=== PATIENT | female | born 1990 | race Caucasian/White ===

== ENCOUNTER 2017-09-03 19:35 | Emergency (ER) | payer BC, MEDICAID ==
[~2017-09-03] VITALS: Ht 160 cm; Wt 74.7 kg
[~2017-09-03 19:35] MED LIST: CIPR500T87; DOXY100C15 PO; HYDR1TAB12 PO; NONE PER PT
[2017-09-03] MEDS ORDERED: ONDANSETRON 2MG/ML, 2ML IVPush ONE (20:00)
[2017-09-03] MEDS ORDERED: SODIUM CHLORIDE FLUSH 10ML SYR IVF ONE (20:00)
[2017-09-03] MEDS ORDERED: SODIUM CHLORIDE 0.9% 1,000ML IVBOLUS ONE (20:00)
[2017-09-03 20:23] LABS: HEMATOCRIT 48.8 % (34.6-47.8); HEMOGLOBIN 16.5 g/dL (11.7-16.4); WHITE BLOOD COUNT 9.8 x10^3/uL (3.4-10)
[2017-09-03 20:30] LABS: ASPARTATE AMINO TRANSFERASE 10 U/L (15-37); BLOOD UREA NITROGEN 14 mg/dL (7-18)
[2017-09-03] MEDS ORDERED: KETOROLAC 30 MG/1 ML ONE (20:57)
[2017-09-03] MEDS ORDERED: KETOROLAC 60 MG/2 ML IM ONE (21:00)
[2017-09-03 21:33] VITALS: BP 112/74
== END 2017-09-03 21:35 | disposition home or self-care (01) ==
LOC: ED 19:58
DX: M54.5 Low back pain (principal)
CPT/HCPCS: 36415; 74176; 80053; 81001; 83605; 83690; 84145; 84703; 85025; 87040; 87086; 96372; 99285; J1885

== ENCOUNTER 2017-12-05 22:10 | Emergency (ER) | payer MEDICAID ==
[~2017-12-05] VITALS: Ht 160 cm; Wt 73.0 kg
[2017-12-05 22:20] VITALS: BP 141/78
[2017-12-05] MEDS ORDERED: SODIUM CHLORIDE 0.9% 1,000ML IVBOLUS ONE (22:30)
[2017-12-05] MEDS ORDERED: LORazepam 2 MG/ML, 1ML IVPush ONE (22:30)
[2017-12-05] MEDS ORDERED: LORazepam 2 MG/ML, 1ML ONE (22:54)
[2017-12-05 22:56] LABS: ALBUMIN 4.4 g/dL (3.4-5.0); ANION GAP 12 mmol/L (5-15); CALCIUM 8.9 mg/dL (8.5-10.1); CHLORIDE 110 mmol/L (98-107)
[2017-12-05 23:03] LABS: ACETAMINOPHEN < 2 mcg/mL (10-30); SALICYLATE LEVEL < 1.7 mg/dL (2.8-20.0)
[2017-12-05] MEDS ORDERED: ZIPRASIDONE 20 MG INJ IM ONE (23:44)
[2017-12-06] MEDS ORDERED: ZIPRASIDONE 20 MG INJ IM ONE
== END 2017-12-06 00:43 | disposition home or self-care (01) ==
LOC: ED 23:59
DX: F15.150 Other stimulant abuse with stimulant-induced psychotic disorder with delusions (principal); F41.9 Anxiety disorder, unspecified; Z88.1 Allergy status to other antibiotic agents; Z88.2 Allergy status to sulfonamides
CPT/HCPCS: 36415; 80048; 80307; 80329; 82040; 84703; 96361; 96374; 99285; J2060; J7030; G0480

== ENCOUNTER 2017-12-06 03:33 | Emergency (ER) | payer MEDICAID ==
[~2017-12-06] VITALS: Ht 162.6 cm; Wt 70.0 kg
[2017-12-06 03:49] VITALS: BP 142/92
== END 2017-12-06 09:20 | disposition home or self-care (01) ==
LOC: ED 04:18
DX: F10.129 Alcohol abuse with intoxication, unspecified (principal); F15.10 Other stimulant abuse, uncomplicated; Z88.0 Allergy status to penicillin
CPT/HCPCS: 99283

== ENCOUNTER 2018-06-01 14:55 | Emergency (ER) | payer MEDICAID ==
[~2018-06-01] VITALS: Ht 162.6 cm; Wt 65.0 kg
[2018-06-01 14:58] VITALS: BP 130/84
[2018-06-01] MEDS ORDERED: LIDOCAINE-MPF 2%, 2ML ONE ×2 (15:27)
[2018-06-01] MEDS ORDERED: CLINDAMYCIN 300 MG CAPSULE PO ONE (15:30)
[2018-06-01] MEDS ORDERED: DIPH,PERTUSS(ACELL),TET VAC/PF 0.5 ML IM-VACC ONE ×2 (15:30→15:32)
[2018-06-01] MEDS ORDERED: LIDOCAINE 2%, 20ML SQ ONE (15:30)
[2018-06-01] MEDS ORDERED: OXYcodone/APAP 5/325MG TABLET PO ONE (15:30)
[2018-06-01] MEDS ORDERED: OXYcodone/APAP 5/325MG TABLET ONE (15:32)
[2018-06-01] MEDS ORDERED: CLINDAMYCIN 300 MG CAPSULE ONE (15:34)
[2018-06-01] MEDS ORDERED: BACITRACIN ZINC OINT 500U/GM, 0.9 GM ONE (15:55)
== END 2018-06-01 16:13 | disposition home or self-care (01) ==
LOC: ED 16:07
DX: S91.332A Puncture wound without foreign body, left foot, initial encounter (principal); L03.90 Cellulitis, unspecified; X58.XXXA Exposure to other specified factors, initial encounter; Y93.9 Activity, unspecified; Y99.8 Other external cause status; Y92.009 Unspecified place in unspecified non-institutional (private) residence as the place of occurrence of the external cause
CPT/HCPCS: 10060; 90471; 90715; 99283; 99284

== ENCOUNTER 2018-08-31 14:50 | Emergency (ER) | payer MEDICAID ==
[~2018-08-31] VITALS: Ht 165.1 cm; Wt 75.0 kg
[2018-08-31 14:53] VITALS: BP 128/98
[2018-08-31] MEDS ORDERED: LORazepam 1MG TABLET PO ONE (15:30)
[2018-08-31] MEDS ORDERED: LORazepam 1MG TABLET ONE (15:36)
[2018-08-31 15:38] LABS: BASOPHILS # (AUTO) 0.05 x10^3/uL (0-0.1); BASOPHILS % (AUTO) 1 % (0-1); EOSINOPHILS # (AUTO) 0.31 x10^3/uL (0-0.4); EOSINOPHILS % (AUTO) 4 % (1-7); LYMPHOCYTES % (AUTO) 31 % (22-44); MD NO; MEAN CORPUSCULAR HEMOGLOBIN 30.6 pg (27.0-34.8); MEAN CORPUSCULAR HGB CONC 33.5 g/dL (32.4-35.8); MEAN CORPUSCULAR VOLUME 91.4 fL (80-100); MEAN PLATELET VOLUME 7.7 fL (7.4-10.4); MONOCYTES # (AUTO) 0.92 x10^3/uL (0.2-0.8); MONOCYTES % (AUTO) 10 % (2-9); NEUTROPHILS # (AUTO) 4.84 x10^3/uL (1.8-6.8); NEUTROPHILS % (AUTO) 55 % (42-75); PLATELET COUNT 333 x10^3/uL (130-400); RED BLOOD COUNT 4.48 x10^6/uL (3.82-5.3); RED CELL DISTRIBUTION WIDTH 14.1 % (9.6-15.2)
[2018-08-31 15:48] LABS: ALBUMIN 3.6 g/dL (3.4-5.0); ANION GAP 6 mmol/L (5-15); CALCIUM 8.7 mg/dL (8.5-10.1); CHLORIDE 107 mmol/L (98-107); CREATININE 0.83 mg/dL (0.55-1.02)
== END 2018-08-31 16:03 | disposition left against medical advice (07) ==
LOC: ED 15:23
DX: R56.9 Unspecified convulsions (principal); F11.10 Opioid abuse, uncomplicated; F15.10 Other stimulant abuse, uncomplicated; F17.200 Nicotine dependence, unspecified, uncomplicated
CPT/HCPCS: 36415; 80048; 82040; 85025; 93005; 99285

== ENCOUNTER 2019-02-10 13:25 | Emergency (ER) | payer MEDICAID ==
[~2019-02-10] VITALS: Ht 162.6 cm; Wt 72.2 kg
[~2019-02-10 13:25] MED LIST changes: -HYDR1TAB12 PO; +HYDR1TAB13 PO
[2019-02-10 13:44] VITALS: BP 132/78
[2019-02-10 14:38] LABS: BASOPHILS # (AUTO) 0.05 x10^3/uL (0-0.1); BASOPHILS % (AUTO) 0 % (0-1); EOSINOPHILS # (AUTO) 0.05 x10^3/uL (0-0.4); EOSINOPHILS % (AUTO) 0 % (1-7); LYMPHOCYTES # (AUTO) 1.92 x10^3/uL (1-3.4); LYMPHOCYTES % (AUTO) 13 % (22-44); MD NO; MEAN CORPUSCULAR HEMOGLOBIN 30.6 pg (27.0-34.8); MEAN CORPUSCULAR HGB CONC 33.5 g/dL (32.4-35.8); MEAN CORPUSCULAR VOLUME 91.3 fL (80-100); MONOCYTES % (AUTO) 4 % (2-9); NEUTROPHILS # (AUTO) 11.73 x10^3/uL (1.8-6.8); NEUTROPHILS % (AUTO) 82 % (42-75); PLATELET COUNT 429 x10^3/uL (130-400); RED BLOOD COUNT 4.93 x10^6/uL (3.82-5.3); RED CELL DISTRIBUTION WIDTH 12.9 % (9.6-15.2)
[2019-02-10 14:40] LABS: ALBUMIN 3.4 g/dL (3.4-5.0); ANION GAP 5 mmol/L (5-15); CALCIUM 9.6 mg/dL (8.5-10.1); CHLORIDE 105 mmol/L (98-107); CREATININE 0.54 mg/dL (0.55-1.02)
--- NOTE | 2019-02-10 15:55 | NUR ---
OBIEE ARCHITECT: PT NOT IN LOBBY AT THIS TIME
--- NOTE | 2019-02-10 16:03 | NUR ---
DISTRIBUTION ACCOUNTING CLERK: PT NOT IN LOBBY AT THIS TIME
--- NOTE | 2019-02-10 16:26 | NUR ---
DRIVEWAY ATTENDANT: PT NOT IN LOBBY AT THIS TIME
== END 2019-02-10 16:29 | disposition left against medical advice (07) ==
LOC: ED 16:23
DX: O26.891 Other specified pregnancy related conditions, first trimester (principal); Z3A.10 10 weeks gestation of pregnancy
CPT/HCPCS: 36415; 80048; 82040; 84703; 85025; 99283

== ENCOUNTER 2021-02-06 00:37 | Emergency (ER) | payer MEDICAID ==
[~2021-02-06] VITALS: Ht 160 cm; Wt 72.3 kg
--- NOTE | 2021-02-06 00:53 | NUR ---
pt reports being seen at [facility] last night but "i got scared and left" pt reports a cut on her left lateral chest [id number]. appears to have been and abcess at one point but its open and drained. left breast is notably red and swollen, pt reports this x2days, stating the pain has gotten worse and she cant stand it now. pt nad, resting on gurney, significant other at bs. bed in lowest, rails engaged, call light on lap, placed on spo2/bp monitoring at this time. wctm. aidan erp at bs for eval and poc.
[2021-02-06] MEDS ORDERED: MORPHINE SULFATE 4 MG/ML, 1ML IVPush PRN (01:00)
[2021-02-06] MEDS ORDERED: CLINDAMYCIN PMX 600MG/50ML 50 ML IV ONE (01:00)
[2021-02-06] MEDS ORDERED: SODIUM CHLORIDE 0.9% 1,000ML IVBOLUS ONE (01:00)
[2021-02-06] MEDS ORDERED: MORPHINE SULFATE 4 MG/ML, 1ML ONE (01:16)
[2021-02-06] MEDS ORDERED: CLINDAMYCIN PMX 600MG/50ML 50 ML ONE (01:17)
[2021-02-06 01:20] LABS: BASOPHILS % (AUTO) 1 % (0-1); EOSINOPHILS % (AUTO) 2 % (1-7); LYMPHOCYTES % (AUTO) 20 % (22-44); MEAN CORPUSCULAR HEMOGLOBIN 29.9 pg (27.0-34.8); MEAN CORPUSCULAR HGB CONC 33.9 g/dL (32.4-35.8); MEAN PLATELET VOLUME 7.6 fL (7.4-10.4); MONOCYTES % (AUTO) 8 % (2-9); NEUTROPHILS % (AUTO) 70 % (42-75); PLATELET COUNT 306 x10^3/uL (130-400); RED CELL DISTRIBUTION WIDTH 12.8 % (9.6-15.2)
[2021-02-06 01:21] LABS: MD NO
[2021-02-06 01:32] LABS: ALANINE AMINOTRANSFERASE 20 U/L (12-78); ALBUMIN 3.2 g/dL (3.4-5.0); ANION GAP 6 mmol/L (5-15); CALCIUM 8.6 mg/dL (8.5-10.1); CHLORIDE 107 mmol/L (98-107); CREATININE 0.81 mg/dL (0.55-1.02)
[2021-02-06 01:34] LABS: ALKALINE PHOSPHATASE 65 U/L (45-117); BILIRUBIN,TOTAL 0.3 mg/dL (0.2-1.0); TOTAL PROTEIN 7.4 g/dL (6.4-8.2)
--- NOTE | 2021-02-06 01:50 | NUR ---
PT NAD, MEDICATED PER DEC, WAITING FOR US READ RESULTS. NO OTHER CHANGES IN CONDITION, VSS, WCTM.
[2021-02-06 02:49] VITALS: BP 115/77
--- NOTE | 2021-02-06 02:50 | NUR ---
PT RESTING ON GURNEY, NAD, DENIES ADDITIONAL NEEDS AT THIS TIME. VSS, ABX RUNNING. BED IN LOWEST, RAILS ENGAGED, PAIN CONTROLLED, WCTM. TO BE DC'D AFTER ABX
--- NOTE | 2021-02-06 03:20 | NUR ---
Patient given discharge instructions and they have confirmed that they understand the instructions. Patient ambulatory with steady gait. NAD, DENIES ADDITIONAL QUESTIONS OR NEEDS, VSS, NO PERSONAL BELONGINGS LEFT IN ROOM AFTER DC.
--- NOTE | 2021-02-06 03:31 | NUR ---
WHILE CLEANING UP [facility] PT SHIRT FOUND TANGLED IN SHEETS. SHIRT GIVEN TO SECURITY. UNABLE TO REACH PT
== END 2021-02-06 03:22 | disposition home or self-care (01) ==
LOC: ED 01:07
DX: L03.313 Cellulitis of chest wall (principal); F17.210 Nicotine dependence, cigarettes, uncomplicated
CPT/HCPCS: 36415; 76641; 80053; 84145; 85025; 87040; 96361; 96365; 96375; 99284; 99406; J2270; J7030